=== PATIENT | male | born 1985 | race Caucasian/White ===

== ENCOUNTER → 2020-12-30 | Outpatient (CLI) | payer OTHER ==
--- NOTE | 2020-12-30 15:12 | XR ---
EXAMINATION TYPE: XR knee complete RT, XR tibia fibula RT DATE OF EXAM: 12/30/2020 CLINICAL HISTORY: Numbness and pain. TECHNIQUE: Three views of the right knee are obtained. 2 views right tibia and fibula. COMPARISON: None. FINDINGS: There is no acute fracture/dislocation evident in right knee. The tri-compartment joint s paces appear within normal limits. The overlying soft tissue appears unremarkable. Images of the right leg show no acute fracture or dislocation. Visualized portion of the ankle joint appear within normal limits. Overlying Soft tissue is unremarkable. IMPRESSION: Unremarkable studies.
--- NOTE | 2020-12-31 08:20 | XR ---
EXAMINATION TYPE: XR foot complete RT DATE OF EXAM: 12/30/2020 COMPARISON: NONE HISTORY: 35-year-old male numbness, possible foot drop. M25.571, R20.9, M21.371 TECHNIQUE: 3 views FINDINGS: There is mild early degenerative spurring at the first MTP joint. Small os peroneum. Os trigonum note d. No acute fracture, subluxation, or dislocation seen. Some bony spurring at the medial malleolus se en on the oblique view. IMPRESSION: 1. Early mild degenerative spurring at the first MTP joint. 2. Suggestion of some additional bony spurring at the medial malleolus on the oblique view. Suspect s equela of prior injury. 3. No acute osseous abnormality is seen.
== END | disposition home or self-care (01) ==
LOC: RADXRMAIN 14:36
PROVIDERS: ATTEND Emergency Medicine
DX: M19.071 Primary osteoarthritis, right ankle and foot (principal); M25.561 Pain in right knee; M79.661 Pain in right lower leg

== ENCOUNTER → 2021-01-05 | Outpatient (CLI) | payer OTHER ==
--- NOTE | 2021-01-05 14:11 | MR ---
EXAMINATION TYPE: MR lumbar spine wo con DATE OF EXAM: 01/05/2021 COMPARISON: None HISTORY: rt side drop foot, Mid calf to foot numbness TECHNIQUE: Multiplanar, multisequence images of the lumbar spine were acquired. L1-L2: Normal disc appearance without desiccation. No herniation, protrusion or disc bulging. No ca nal stenosis is present. Foramina are patent bilaterally. L2-L3: Normal disc appearance without desiccation. No herniation, protrusion or disc bulging. No ca nal stenosis is present. Foramina are patent bilaterally. L3-L4: Normal disc appearance without desiccation. No herniation, protrusion or disc bulging. No ca nal stenosis is present. Foramina are patent bilaterally. L4-L5: There is a disc bulge with central disc protrusion and annular tear resulting in mild left edelmira ral foraminal narrowing. L5-S1: Normal disc appearance without desiccation. No herniation, protrusion or disc bulging. No ca nal stenosis is present. Foramina are patent bilaterally. Lumbar segments are intact. No paraspinal masses are identified. Conus medullaris has a normal appe arance. IMPRESSION: L4-L5: There is a disc bulge with central disc protrusion and annular tear resulting in mild left edelmira ral foraminal narrowing.
== END | disposition home or self-care (01) ==
LOC: RADMRIMAIN 13:25
PROVIDERS: ATTEND Emergency Medicine
DX: M51.26 Other intervertebral disc displacement, lumbar region (principal); M99.73 Connective tissue and disc stenosis of intervertebral foramina of lumbar region
CPT/HCPCS: 72148